=== PATIENT | female | born 1945 | race Caucasian/White ===

== ENCOUNTER → 2017-06-18 | Outpatient (CLI) | payer MEDICARE, OTHER ==
[~2017-06-18] MED LIST: ASCRIPTIN325 MG PO; FISH OIL CONC1000 MG PO; MULTI VITAMINS1 TA1 PO
--- NOTE | 2017-06-20 11:00 | RADIOLOGY REPORT PS360 ---
DIG MAMM-DX JERMAINE W/AVWS W/CAD, US BREAST-RT COMPLETE W/AXILLA Ordering Physician: ABILIO DONAVONEmerald Patient Age: 72 years Female COMPARISON: Awaiting outside studies from [facility] INDICATION: New Breast lump upper-outer quadrant right breast 3 -4 weeks. TECHNIQUE: MLO, cc view axillary cc view both breast. MLO spot view along with Multiple Additional CC spot views performed of density upper-outer quadrant FINDINGS: . Areas of Dense breast tissue bilaterally, decreases sensitivity of mammography. DIAGNOSTIC BILATERAL MAMMOGRAM w/ additional spot views right breast: RIGHT BREAST.: The palpable area corresponds with asymmetric area of masslike density on the mammogram which measures 20 mm AP, 14 mm transverse, 15 mm height. There does appear to be some interposed fat at this mass but is still significant worrisome on mammography with irregular ill-defined margins. Ultrasound subsequently performed today was suspicious as well. No History of surgery or recent trauma in this region. It did to seem to compress out slightly on additional views and because of this we are waiting for outside studies and will provide an addendum..., but at this point I would recommend biopsy given history of new palpable mass in given the appearance on both ultrasound and mammography today.. And no history of trauma given. There is also a small 6.5 mm well marginated nodular density at the medial right breast but it seems fairly low-density with no associated area on ultrasound. I believe can be followed 6 months LEFT BREAST. Dense breast tissue. No discrete focal area of concern. But addendum may follow if outside studies become available for comparison. ====== ULTRASOUND RIGHT BREAST including axillary survey No prior studies current available. Awaiting studies from [facility] Abnormal mass at site of palpable area upper-outer quadrant right breast towards 9 o'clock position.: Hypoechoic central mass here with partially shadowing mass measuring over & ill-defined margins. Entire mass including slightly more hyperechoic rim measuring 1.45 cm length x 1 cm in AP. There is architectural distortion in this area. This is suspicious mass by ultrasound as well as mammography and recommend biopsy.. Ultrasound guided biopsy is most expeditious. ( Alternatively Stereotactic biopsy could be utilized as well).. The remainder of the right breast unremarkable with no additional findings. Particular attention is directed towards the medial breast to address the questionable small nodule seen on mammography here-. No appreciable findings with ultrasound at this site. No suspicious axillary lymph nodes are encountered. Scattered small benign-appearing nodes... ====== IMPRESSION========= 1.*Recommend Biopsy Right Breast Mass: The new palpable mass at the 9 patient o'clock position RIGHT breast corresponds with a suspicious lesion on both mammography and ultrasound. Recommend biopsy of this palpable mass..* Ultrasound biopsy most available & expediently at our facility. 2. RIGHT breast. A separate Small low-density nodule medial right breast on mammography is not seen on ultrasound and would benefit from 6 month follow-up right breast. 3. LEFT breast. Dense breast but no suspicious findings. BI-RADS CATEGORY: 4_Suspicious Abnormality RECOMMENDED FOLLOWUP: RECOMMEND BIOPSY of palpable lesion towards 9-10 o'clock position lateral right breast. Ultrasound guided biopsy would be most expeditious. We are waiting [facility] studies but very unlikely significant change this recommendation (A letter has been sent to the patient regarding results of the study.)
== END ==
LOC: RAD 11:00
DX: N63.10 Unspecified lump in the right breast, unspecified quadrant (principal); N63.20 Unspecified lump in the left breast, unspecified quadrant
CPT/HCPCS: G0204